=== PATIENT | female | born 2000 | race Caucasian/White ===

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

== ENCOUNTER 2022-01-24 09:10 | Emergency (ER) | payer MEDICAID, SELFPAY ==
[2022-01-24 09:11] VITALS: BP 114/81; PULSE 107; RESP 16; TEMP 36.3; O2SAT 98; BMI 32.8
--- NOTE | 2022-01-24 10:24 | US_ITS ---
STUDY: ULTRASOUND OF THE FEMALE PELVIS - COMPLETE REASON FOR EXAM: Female, 21 years old. Menometrorrhagia LMP: 01/24/2022. TECHNIQUE: Transvaginal TECHNICAL QUALITY: Adequate. COMPARISON: None. FINDINGS: The uterus is anteverted and is in a midline position. The uterus measures 8.2 cm x 4.2 cm x 4.1 cm. Normal uterine cervix. The endometrium measures 11.7 mm in thickness, and is fluid distended. There is no demonstrated endometrial mass. There is no demonstrated myometrial mass. I.U.D. - The patient does not have an I.U.D. The right ovary is non-visualized. The left ovary is non-visualized. There is no fluid in the cul-de-sac. US/Transvaginal Non- IMPRESSION: Normal female pelvis. Electronically Signed: Doc Guillen MD at 11:38 EDT ,
--- NOTE | 2022-01-24 10:25 | EDS_ITS ---
HPI History of Present Illness Chief Complaint: Abd Pain Informant: patient and parent Narrative Narrative: 21-year-old female presenting to the emergency room with vaginal bleeding and pelvic pain. Patient states that she is sexually active. She notes that she has had painful periods for many years. She states that this. It is very painful for her. She reports pelvic cramping. She notes very irregular. Sometimes having gone a year without a period. 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 She is not on hormonal therapy. PFSH PFSH Medical History no medical history Home Medications NK 01/24/22 [History Last Taken Unknown] Allergy/AdvReac Type Severity Reaction Status Date / Time No Known Allergies Allergy Verified 01/24/22 09:10 Surgical History no surgical history Social History (Updated 01/24/22 @ 10:[address] Jorje Wu, DO) Smoking Status: Never smoker substance use type: does not use ROS ROS ED Constitutional Constitutional ED: Denies chills or weight loss Eyes Eyes: Denies change in vision or diplopia ENT ENT ED: Denies ear pain, rhinorrhea or sore throat Cardiovascular Cardiovascular: Denies chest pain, orthopnea, palpitations or racing heartbeat Respiratory/Chest Respiratory/Chest: Denies cough, dyspnea or orthopnea Gastrointestinal Gastrointestinal: Denies abdominal pain, diarrhea, nausea or vomiting Genitourinary Genitourinary ED: Reports other Details: See history of present illness ; Denies dysuria, hematuria or urinary frequency Musculoskeletal Musculoskeletal: Denies arthralgias or myalgias Integumentary Denies abscess or rash Neurologic Neurologic: Denies headache(s) or weakness Psychiatric Psychiatric: Denies anxiety, depression, suicidal ideation or suicidal thoughts Endocrine Endocrinology: Denies polydipsia, polyphagia or polyuria Allergic/Immunologic Allergic/Immunologic ED: Denies mouth swelling, tongue swelling or urticaria EXAM Physical Exam Const Vital Signs: 01/24/22 09:11 01/24/22 11:21 Temperature 97.4 F L Temperature Source Temporal Pulse Rate 107 H Respiratory Rate 16 16 Blood Pressure 114/81 H Blood Pressure Mean 92 Pulse Ox 98 Oxygen Delivery Method Room Air Positive well nourished, well developed and obese General Appearance ED: well developed Nutritional Appearance: obese HEENT Reports normocephalic, head/scalp atraumatic and moist mucous membranes Eyes PERRL and EOMs intact bilaterally Neck no lymphadenopathy, supple and no JVD Resp normal respiratory effort and clear to auscultation bilaterally Cardio regular rate, regular rhythm and no murmurs GI normal to inspection, nondistended, normoactive bowel sounds and non-tender Palpation: soft Back/Spine no CVA tenderness and normal ROM Extremity normal to inspection General Extremety ED: Negative for edema General Extremity: Negative for edema Neuro oriented x3 and CN's II-XII intact bilaterally Sensorium / Orientation: alert Motor Exam: strength 5/5 throughout Psych mental status grossly normal Mood & Affect: Negative for depressed or tearful Skin no rashes or lesions noted and no wounds MDM MDM MDM Narrative Medical decision making narrative: Patient is not . Hemoglobin is 13.6. Pelvic ultrasound was obtained and demonstrates normal findings. Patient would benefit from EXHIBITS CURATOR evaluation. Refer her on for follow-up. Tylenol Motrin for pain return if worsening or concerns Lab Data Attestation: I reviewed the patient's lab results. Labs: Laboratory Results - last 24 hr 01/24/22 01/24/22 09:20 09:20 Hgb 13.6 Hct 42.4 Serum , Qual NEGATIVE Radiography Diagnostic Testing: Clinical Impression(s) from Imaging Studies Transvaginal US 01/24/22 10:24 IMPRESSION: Normal female pelvis. Electronically Signed: Doc Guillen MD at 11:38 EDT , Discharge Plan Triage Chief Complaint: Abd Pain ED Provider: Jorje Wu Dx/Rx/DC Orders Clinical Impression: Menorrhagia Instructions: ED Heavy Menstrual Bleeding Prescriptions: No Action NK Primary Care Provider: Dinah Maldonado Referrals: Babatunde Porter MD [Med Staff - Active Staff] - As soon as possible Maddy Fernando MD [Med Staff - Active Staff] - As soon as possible Dinah Maldonado PA [Primary Care Provider] - Disposition Disposition: Home, Self Care
[2022-01-24 10:32] LABS: Hematocrit 42.4 % (37-47); Hemoglobin 13.6 g/dL (12.0-15.0)
[2022-01-24 10:41] LABS: Internal QC Validated? YES +Cl - CLEAR BKGD; Pregnancy, Serum, hCG Quali. NEGATIVE Negative
[2022-01-24 11:21] VITALS: RESP 16
[2022-01-24] MEDS: Ketorolac 30 MG/ML Syringe IV (11:59)
== END 2022-01-24 12:27 | disposition home or self-care (01) ==
PROVIDERS: Emergency Provider Emergency Medicine; PCP Physician Assistant; Visit Provider Emergency Medicine
DX: N92.0 Excessive and frequent menstruation with regular cycle (principal); R10.2 Pelvic and perineal pain; E66.9 Obesity, unspecified
CPT/HCPCS: 76830; 84703; 85014; 85018; 99283; A4216

== ENCOUNTER 2022-12-30 14:25 | Emergency (ER) | payer MEDICAID, SELFPAY ==
[2022-12-30 14:26] VITALS: BP 149/89; PULSE 114; RESP 16; TEMP 36.4; O2SAT 97
--- NOTE | 2022-12-30 15:49 | EX.ED.DYSGE1 ---
HPI History of Present Illness Chief Complaint: Bite Informant: patient Narrative Narrative: 22-year-old female states she was giving her elderly cat a bath when she used too much water and the cat bit her in the right hand. Her tetanus is up-to-date. She cleansed the wound with peroxide. PFSH PFSH Medical History no medical history Home Medications NK 01/24/22 [History Last Taken Unknown] Allergy/AdvReac Type Severity Reaction Status Date / Time No Known Allergies Allergy Verified 12/30/22 14:28 Social History Smoking Status: Never smoker substance use type: does not use EXAM Physical Exam Const Vital Signs: 12/30/22 14:26 Temperature 97.6 F L Temperature Source Temporal Pulse Rate 114 H Respiratory Rate 16 Blood Pressure 149/89 H Blood Pressure Mean 109 Pulse Ox 97 Oxygen Delivery Method Room Air Positive well nourished and well developed General Appearance ED: well developed HEENT Reports normocephalic, head/scalp atraumatic and moist mucous membranes Eyes PERRL and EOMs intact bilaterally Neck no lymphadenopathy, supple and no JVD Resp normal respiratory effort and clear to auscultation bilaterally Cardio regular rate, regular rhythm and no murmurs GI normal to inspection, nondistended, normoactive bowel sounds and non-tender Palpation: soft Back/Spine no CVA tenderness and normal ROM Extremity Extremity Narrative: There are several puncture bites along the volar and dorsal aspect of the right thenar eminence. There is mild swelling and bruising. There is no palpable foreign bodies. No active bleeding. No evidence of secondary infection at this time General Extremety ED: Negative for edema General Extremity: Negative for edema Neuro oriented x3 and CN's II-XII intact bilaterally Sensorium / Orientation: alert Motor Exam: strength 5/5 throughout Psych mental status grossly normal Mood & Affect: Negative for depressed or tearful Skin no rashes or lesions noted and no wounds MDM MDM MDM Narrative Medical decision making narrative: Wounds will be cleansed and dressed. She will be treated with Augmentin prophylactically. Tetanus is up-to-date. At this point as discussed with the patient I do not palpate a foreign body. X-rays will be deferred after shared decision making. Patient to return if worsening or concerns Discharge Plan Triage Chief Complaint: Bite ED Provider: Jorje Wu Dx/Rx/DC Orders Prescriptions: No Action NK Primary Care Provider: Dinah Maldonado Referrals: Dinah Maldonado, PA [Primary Care Provider] -
== END 2022-12-30 16:17 | disposition home or self-care (01) ==
LOC: ED 16:12
PROVIDERS: Emergency Provider Emergency Medicine; PCP Physician Assistant; Visit Provider Emergency Medicine
DX: S61.451A Open bite of right hand, initial encounter (principal); W55.01XA Bitten by cat, initial encounter; Y93.K9 Activity, other involving animal care; Y92.89 Other specified places as the place of occurrence of the external cause
CPT/HCPCS: 99283; A4216

== ENCOUNTER 2023-08-27 09:48 | Emergency (ER) | payer OTHER, SELFPAY ==
[2023-08-27 09:48] VITALS: BP 143/86; PULSE 106; RESP 18; TEMP 36.6; O2SAT 98; BMI 31.1
--- NOTE | 2023-08-27 10:06 | EX.ED.UPPERE ---
HPI History of Present Illness Chief Complaint: Laceration Detail of Chief Complaint: Laceration left thumb, distal ulnar side Informant: patient Occured/Mechanism Comment: Thumb at work. She was cutting potatoes. Onset/Context/Timing Onset: Hours Context: Sudden Onset Timing: Continuous Current Severity: Gone Maximum Severity: Mild Worsened by: Initial injury Relieved by: Not applicable Associated Symptoms Associated Symptoms: Negative for Parasthesia, Weakness or Loss of Funtion Narrative Narrative: Patient is a 23-year-old [id number] female. She presents because of work-related injury. She has a laceration to the distal ulnar side of the left thumb. It is a jagged wound. Total length is 1 cm. She denies paresthesia, anesthesia or motor aches. Tetanus Immunization: 5-10 years Prior similar symptoms: No Recent Illness/Hospitalization: No PFSH PFSH Medical History no medical history no medical history Home Medications NK 08/27/23 [History Last Taken Unknown] Allergy/AdvReac Type Severity Reaction Status Date / Time No Known Allergies Allergy Verified 08/27/23 10:02 Family History no significant family his no significant family history Surgical History no surgical history no surgical history Social History Smoking Status: Never smoker substance use type: does not use ROS ROS ED Integumentary Reports other Details: Laceration left thumb Neurologic Neurologic: Denies paresthesias or weakness Hematologic/Lymphatic Hematologic/Lymphatic: Denies easy bleeding or easy bruising EXAM Physical Exam Const Vital Signs: 08/27/23 09:48 Temperature 98 F Temperature Source Temporal Pulse Rate 106 H Respiratory Rate 18 Blood Pressure 143/86 H Blood Pressure Mean 105 Pulse Ox 98 Oxygen Delivery Method Room Air Positive well nourished, well developed and obese General Appearance ED: well developed and NAD Nutritional Appearance: obese HEENT normocephalic and atraumatic Eyes PERRL and EOMs intact bilaterally Resp normal respiratory effort Cardio regular rate and regular rhythm Extremity full ROM; Negative for normal to inspection Extremity Narrative: Patient has a laceration distal to the nail ulnar side left thumb. This will require 1-2 stitches. Glue is not an option since she has her hands in water at work. Tetanus is up-to-date. Neuro oriented x3, CN's II-XII intact bilaterally, moves all extremities, no focal motor deficits and no sensory deficits noted Psych mental status grossly normal Skin Skin Narrative: Laceration as previously described MDM MDM MDM Narrative Medical decision making narrative: Patient has a laceration which required repair. Please see procedure note Procedures Other Procedures Procedure(s): Thumb was anesthetized by digital block with supplementation of radial nerve. A total of 4 cc of 1% lidocaine without epinephrine was infused. Patient's wound was cleansed and irrigated. Using 5-0 Ethilon simple interrupted sutures placed. A total of 2 stitches placed. Patient tolerated procedure. She was discharged home with appropriate home-going instructions. Discharge Plan Triage Chief Complaint: Laceration ED Provider: Clive Matta Dx/Rx/DC Orders Clinical Impression: Anxiety, Sinus tachycardia, Laceration of left thumb Instructions: ED Laceration, Hand: All Closures Prescriptions: No Action NK Primary Care Provider: Dinah Maldonado Referrals: [facility] of [facility]] - 10 Day for suture removal Dinah Maldonado PA [Primary Care Provider] - Disposition Disposition: Home, Self Care
== END 2023-08-27 12:35 | disposition home or self-care (01) ==
PROVIDERS: Emergency Provider Emergency Medicine; PCP Physician Assistant; Visit Provider Emergency Medicine
DX: S61.012A Laceration without foreign body of left thumb without damage to nail, initial encounter (principal); R00.0 Tachycardia, unspecified; F41.9 Anxiety disorder, unspecified; Z23 Encounter for immunization
CPT/HCPCS: 12001; 90471; 99283

== ENCOUNTER 2024-07-03 13:22 | Emergency (ER) | payer SELFPAY ==
[2024-07-03 13:24] VITALS: BP 139/81; PULSE 120; RESP 22; TEMP 36; O2SAT 98; BMI 36.5
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
[2024-07-03 14:24] VITALS: BP 134/89; PULSE 78; RESP 19; O2SAT 99
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
[2024-07-03 15:00] VITALS: BP 138/78; PULSE 78; RESP 18; O2SAT 99
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
[2024-07-03 15:29] VITALS: BP 134/89; PULSE 79; RESP 14; TEMP 36.6; O2SAT 99
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
== END 2024-07-03 15:34 | disposition home or self-care (01) ==
PROVIDERS: Emergency Provider Emergency Medicine; Visit Provider Emergency Medicine
DX: S16.1XXA Strain of muscle, fascia and tendon at neck level, initial encounter (principal); Y04.8XXA Assault by other bodily force, initial encounter; F41.9 Anxiety disorder, unspecified
CPT/HCPCS: 70498; 72125; 99283; Q9967

== ENCOUNTER 2024-08-30 12:15 | Emergency (ER) | payer SELFPAY ==
[2024-08-30 12:15] VITALS: BP 136/99; PULSE 82; RESP 16; TEMP 36.8; O2SAT 100; BMI 35.0
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
[2024-08-30] MEDS: Naproxen 500 MG Tablet PO (12:39)
[2024-08-30 13:10] VITALS: BP 136/99; PULSE 82; RESP 16; TEMP 36.8; O2SAT 100
== END 2024-08-30 13:11 | disposition home or self-care (01) ==
LOC: ED 12:48
PROVIDERS: Emergency Provider Emergency Medicine; PCP Physician Assistant; Visit Provider Emergency Medicine
DX: M54.2 Cervicalgia (principal); R03.0 Elevated blood-pressure reading, without diagnosis of hypertension; G89.29 Other chronic pain
CPT/HCPCS: 99282